=== PATIENT | female | born 1970 | race Caucasian/White ===

== ENCOUNTER 2018-07-15 12:02 | Emergency (ER) | payer MEDICAID ==
[~2018-07-15] VITALS: Ht 157.5 cm; Wt 84.8 kg
[~2018-07-15 12:02] MED LIST: COLACE100 MG PO; FERG PO; GLU500 PO; LAC PO; LEVAQUIN750 MG PO; NORCO1 TA1 PO; PRI20 PO; VITAMIN C250 M1 PO; VITC PO; ZOCOR10 MG PO
[2018-07-15 12:26] VITALS: BP 115/54; Ht 157.5 cm; Wt 84.8 kg
== END 2018-07-15 13:28 | disposition home or self-care (01) ==
LOC: ED 12:02
DX: L02.415 Cutaneous abscess of right lower limb (principal); E11.9 Type 2 diabetes mellitus without complications; Z90.49 Acquired absence of other specified parts of digestive tract; Z98.890 Other specified postprocedural states

== ENCOUNTER 2019-12-15 01:37 | Emergency (ER) | payer MEDICAID ==
[~2019-12-15] VITALS: Ht 167.6 cm; Wt 89.0 kg
[2019-12-15 01:50] VITALS: Ht 167.6 cm; Wt 89.0 kg
[2019-12-15 03:54] VITALS: BP 139/59
== END 2019-12-15 03:54 | disposition home or self-care (01) ==
LOC: ED 01:37
DX: K64.4 Residual hemorrhoidal skin tags (principal); E11.9 Type 2 diabetes mellitus without complications; Z98.890 Other specified postprocedural states; Z90.49 Acquired absence of other specified parts of digestive tract

== ENCOUNTER 2020-02-18 22:39 | Emergency (ER) | payer MEDICAID ==
[~2020-02-18] VITALS: Ht 157.5 cm; Wt 89.5 kg
[2020-02-18 22:46] VITALS: Ht 157.5 cm; Wt 89.5 kg
[2020-02-18 23:43] VITALS: BP 146/65
== END 2020-02-18 23:43 | disposition home or self-care (01) ==
LOC: ED 22:39
DX: K64.9 Unspecified hemorrhoids (principal); E11.9 Type 2 diabetes mellitus without complications; Z86.2 Personal history of diseases of the blood and blood-forming organs and certain disorders involving the immune mechanism; Z90.49 Acquired absence of other specified parts of digestive tract